=== PATIENT | female | born 1990 | race Caucasian/White ===

== ENCOUNTER 2017-04-25 14:19 | Emergency (ER) | payer MEDICAID ==
[~2017-04-25] VITALS: Ht 162.6 cm; Wt 67.4 kg
[~2017-04-25 14:19] MED LIST: PREN1TAB62 PO
[2017-04-25 14:39] VITALS: Ht 162.6 cm; Wt 67.4 kg
[2017-04-25] MEDS ORDERED: KETOROLAC 60 MG INJ IM STA (15:18)
--- NOTE | 2017-04-25 16:55 | RADRPT ---
PROCEDURE: Bilateral breast ultrasound, complete. CLINICAL INDICATION: 27-year-old female with right medial breast pain. TECHNIQUE: Whole breast ultrasound is performed. COMPARISON: None FINDINGS: Ultrasound of the breast shows no evidence of mass, cyst, fluid collection or other sonographic abno rmality. There is no evidence of axillary adenopathy. IMPRESSION: No sonographic evidence of malignancy. BIRADS 1 (Negative). Recommend clinical management. RPTAT: QQ .Shane Pham MD, Date Time Electronically viewed and signed by .Shane Pham MD, on 04/25/2017 16:55 .L/
[2017-04-25] MEDS ORDERED: IBUP400T22 PO (17:44)
--- NOTE | 2017-04-25 20:45 | ERD ---
ER Documentation Chief Complaint Chief Complaint Pt with R breast pain X 4-5 days, small lump noted. HPI 27-year-old female patient with no significant past mental history presents to the ED complaining of right breast pain that started 5 days ago. Patient describes as pressure-like and rates it a 8 out of 10. Reports that she feels like a mass on the superior portion of her breast. States that she is currently on her menstruation. Reports that she has a family history of breast cancer, her aunt, cousins and sister. Denies any irregular discharge, fever, chills, nausea, vomiting, chest pain, wheezing, increased redness of the breast or increased swelling. Denies breast-feeding. ROS All systems reviewed and are negative except as per history of present illness. Medications Home Meds Active Scripts Ibuprofen* (Motrin*) 400 Mg Tab, 400 MG PO Q6, #30 TAB Prov:KATIA LYNCH PA-C 04/25/17 Reported Medications Vit-Iron Fumarate-FA ( Vitamin Tablet) 1 Each Tablet, 1 TAB PO DAILY, TAB 05/31/15 Allergies Allergies: Coded Allergies: No Known Allergy (Unverified , 06/02/15) PMhx/Soc History of Surgery: Yes (APPENDECTOMY) Anesthesia Reaction: No Hx Neurological Disorder: No Hx Respiratory Disorders: No Hx Cardiac Disorders: No Hx Psychiatric Problems: No Hx Miscellaneous Medical Probl: No Hx Alcohol Use: No Hx Substance Use: No Hx Tobacco Use: No Physical Exam Vitals Vital Signs Date Time Temp Pulse Resp B/P Pulse Ox O2 Delivery O2 Flow Rate FiO2 04/25/17 14:39 97.6 102 20 144/93 99 Physical Exam Const: Egb-dxa-dksohyuym, well-nourished. In no acute distress. Head: Atraumatic, normocephalic Eyes: Normal Conjunctiva without injection. No purulent discharge. PERRL. EOMI ENT: Normal external ear. Ear canal without erythema. Tympanic membrane pearly ken without effusion or bulging. Nasal canal clear with normal turbinates. Moist oropharynx without tonsillar exudates. Non-erythematous pharynx. Uvula midline. No drooling. No trismus. Neck: Full range of motion. No meningismus. No cervical lymphadenopathy. Resp: Clear to auscultation bilaterally. No wheezing, rhonchi, rales, or crackles. No accessory muscle use. No retractions. Cardio: Regular rate and rhythm. No murmurs, rubs or gallops. Breast: 2 cm mobile firm mass palpated at 2-3 o clock position right breast. No areolar discharge bilaterally. No warmth to touch bilaterally. No erythema or edema bilaterally. No fluctuance or induration bilaterally. Abd: Soft, non tender, non distended. Normal bowel sounds. No palpable masses. No rebound tenderness. No guarding. Skin: No petechiae or rashes Back: No midline tenderness. No CVA tenderness. Ext: No cyanosis, or edema. Neur: Awake and alert. Psych: Normal Mood and Affect Results 24 hrs Current Medications Medications (Trade) Dose Ordered Sig/Jamar Route PRN Reason Start Time Stop Time Status Last Admin Dose Admin Ketorolac Tromethamine (Toradol) 60 mg ONCE STAT IM 04/25/17 15:18 04/25/17 15:20 DC 04/25/17 15:33 Procedures/MDM 27-year-old female patient with no significant past medical history presents to the ED complaining of right breast pain. Patient is afebrile and nontoxic- appearing. Patient has normal vital signs. A breast ultrasound was ordered to further evaluate patient. Patient was given Toradol here in the ED with improvement of her symptoms. Negative urine . PROCEDURE: Bilateral breast ultrasound, complete. CLINICAL INDICATION: 27-year-old female with right medial breast pain. TECHNIQUE: Whole breast ultrasound is performed. COMPARISON: None FINDINGS: Ultrasound of the breast shows no evidence of mass, cyst, fluid collection or other sonographic abnormality. There is no evidence of axillary adenopathy. IMPRESSION: No sonographic evidence of malignancy. BIRADS 1 (Negative). Recommend clinical management. Differential diagnosis considered include but is not limited to fibroadenoma, cyst, fibrocystic changes. Since patient has a family history of breast cancer she was strictly instructed to follow up with primary care physician for further evaluation with mammogram. Low suspicion for mastitis, deep space infection, sepsis, cellulitis, or other emergent conditions. Discharge medications: Ibuprofen Follow up with primary care physician in 1-2 days to obtain a mammogram. Instructed patient to return to the ED sooner for any worsening symptoms. Patient's questions were answered. Patient understood and agreed with discharge plan. Patient discharged stable. Departure Diagnosis: Primary Impression: Breast pain Condition: Stable Patient Instructions: Breast Mass, Uncertain Cause Referrals: [facility] YOU HAVE RECEIVED A MEDICAL SCREENING EXAM AND THE RESULTS INDICATE THAT YOU DO NOT HAVE A CONDITION THAT REQUIRES URGENT TREATMENT IN THE EMERGENCY DEPARTMENT. FURTHER EVALUATION AND TREATMENT OF YOUR CONDITION CAN WAIT UNTIL YOU ARE SEEN IN YOUR DOCTORS OFFICE WITHIN THE NEXT 1-2 DAYS. IT IS YOUR RESPONSIBILITY TO MAKE AN APPOINTMENT FOR FOLOW-UP CARE. IF YOU HAVE A PRIMARY DOCTOR --you should call your primary doctor and schedule an appointment IF YOU DO NOT HAVE A PRIMARY DOCTOR YOU CAN CALL OUR PHYSICIAN REFERRAL HOTLINE AT IF YOU CAN NOT AFFORD TO SEE A PHYSICIAN YOU CAN CHOSE FROM THE FOLLOWING [facility] [address] [facility]. [facility] [address] [facility]. [facility] [address] [facility] [facility] [address] [facility] [address] [facility]. [facility] [address] [facility]. [facility] YOU HAVE RECEIVED A MEDICAL SCREENING EXAM AND THE RESULTS INDICATE THAT YOU DO NOT HAVE A CONDITION THAT REQUIRES URGENT TREATMENT IN THE EMERGENCY DEPARTMENT. FURTHER EVALUATION AND TREATMENT OF YOUR CONDITION CAN WAIT UNTIL YOU ARE SEEN IN YOUR DOCTORS OFFICE WITHIN THE NEXT 1-2 DAYS. IT IS YOUR RESPONSIBILITY TO MAKE AN APPOINTMENT FOR FOLOW-UP CARE. IF YOU HAVE A PRIMARY DOCTOR --you should call your primary doctor and schedule and appointment IF YOU DO NOT HAVE A PRIMARY DOCTOR YOU CAN CALL OUR PHYSICIAN REFERRAL HOTLINE AT . IF YOU CAN NOT AFFORD TO SEE A PHYSICIAN YOU CAN CHOSE FROM THE FOLLOWING [facility] INSTITUTIONS: [facility] [address] [place] [address] [facility] [address] [place] [address] [facility] + [facility] [address] [place] [address] [facility] URGENT CARE/SPECIALTIES Additional Instructions: Seguimiento con knowles mdico de cabecera para obtener killian mamografa Regrese a estas instalaciones si no se mejora rubens esperbamos o rubens le dijimos - rojez del pecho, vida, thea, etc. KATIA LYNCH PA-C Apr 25, 2017 20:45 KATIA LYNCH PA-C Apr 25, 2017 20:45
== END 2017-04-25 18:04 | disposition home or self-care (01) ==
LOC: FTE 14:19
DX: N64.4 Mastodynia (principal)
CPT/HCPCS: 76641; 96372; J1885; Z7502

== ENCOUNTER 2018-04-17 16:55 | Emergency (ER) | END 2018-04-17 20:28 | disposition short-term general hospital (02) ==